=== PATIENT | female | born 1945 | race Caucasian/White ===

== ENCOUNTER → 2018-12-15 | Outpatient (CLI) | payer OTHER ==
--- NOTE | 2018-12-15 16:59 | PCVCIMAG ---
APPROVED REPORT Study performed: 12/15/2018 15:47:18 EXAM: Comprehensive 2D, Doppler, and color-flow Echocardiogram Patient Location: Echo lab Status: routine BSA: 1.67 HR: 72 bpmBP: 130/78 mmHg Rhythm: NSR Other Information Study Quality: Adequate Risk Factors: Cardiac Risk Factors: HTN Indications Abnormal ECG Dyspnea edema 2D Dimensions IVSd: 9.24 (7-11mm)LVOT Diam: 19.65 (18-24mm) LVDd: 41.97 mm PWd: 9.13 (7-11mm)Ascending Ao: 32.17 (22-36mm) LVDs: 31.04 (25-40mm) Left Atrium: 36.13 (27-40mm) Aortic Root: 29.83 mm LV Single Plane 4CH: 60.22 % LV Single Plane 2CH: 66.98 % Biplane EF: 64.0 % Volumes Left Atrial Volume (Systole) Single Plane 4CH: 50.17 mLSingle Plane 2CH: 49.83 mL LA ESV Index: 30.00 mL/m2 Aortic Valve AoV Peak Rashad.: 1.63 m/s AO Peak Gr.: 10.61 mmHgLVOT Max P.58 mmHg LVOT Max V: 0.80 m/s UCHE Vmax: 1.50 cm2 Mitral Valve E/A Ratio: 0.6 MV Decel. Time: 261.23 ms MV E Max Rashad.: 0.47 m/s MV A Rasahd.: 0.76 m/s IVRT: 131.49 ms Pulmonary Valve PV Peak Rashad.: 1.19 m/sPV Peak Gr.: 5.62 mmHg Pulmonary Vein P Vein S: 0.29 m/sP Vein A: 0.36 m/s P Vein D: 0.37 m/sP Vein A Dur.: 103.8 msec P Vein S/D Ratio: 0.78 Tricuspid Valve TR Peak Rashad.: 2.66 m/s TR Peak Gr.: 28.21 mmHg TV Vmax: 0.53 m/s Left Ventricle The left ventricle is normal size. There is normal LV segmental wall motion. There is normal left ventricular wall thickness. Left ventricular systolic function is normal. The left ventricular ejection fraction is within the normal range. LVEF is 60-65%. Grade I - abnormal relaxation pattern. Right Ventricle The right ventricle is normal size. The right ventricular systolic function is normal. Atria The left atrium size is normal. The right atrium size is normal. Aortic Valve Mild aortic valve sclerosis. Trace aortic regurgitation. There is no aortic valvular stenosis. Mitral Valve Mild mitral annular calcification. Mild mitral regurgitation. No evidence of mitral valve stenosis. Tricuspid Valve The tricuspid valve is normal in structure. Mild tricuspid regurgitation with PAP of 35 mmHg. Pulmonic Valve The pulmonary valve is normal in structure. Trace pulmonic regurgitation. Great Vessels The aortic root is normal in size. IVC is normal in size and collapses >50% with inspiration. Pericardium There is no pericardial effusion. There is no pleural effusion. <Conclusion> The left ventricle is normal size. LVEF is 60-65%. Grade I - abnormal relaxation pattern. The right ventricle is normal size. The left atrium size is normal. Mild aortic valve sclerosis. Trace aortic regurgitation. Mild mitral regurgitation. Mild tricuspid regurgitation with PAP of 35 mmHg. The aortic root is normal in size. There is no pericardial effusion.
--- NOTE | 2018-12-15 18:16 | PCVCIMAG ---
EXAM: BILATERAL RENAL ULTRASOUND AND BILATERAL RENAL DUPLEX INDICATION: Hypertension FINDINGS: Right kidney: Length measures 9.6 cm. No hydronephrosis or extensive renal scarring. Right renal duplex: Adequate technical quality. No sonographic evidence of renal artery stenosis. The aortic to renal artery ratio is 1.7. The renal vein is patent. Left kidney: Length measures 10.0 cm. No hydronephrosis or extensive renal scarring. Left renal duplex: Adequate technical quality. No sonographic evidence of renal artery stenosis. The aortic to renal artery ratio is 1.6. The renal vein is patent. Bladder: No obvious abnormalities. IMPRESSION: No significant renal artery stenosis. No hydronephrosis bilaterally. LOC:[id number]
== END | disposition home or self-care (01) ==
LOC: PCVCIMAG 14:32
PROVIDERS: ATTEND Internal Medicine Cardiovascular Disease
DX: I08.3 Combined rheumatic disorders of mitral, aortic and tricuspid valves (principal); R94.31 Abnormal electrocardiogram [ECG] [EKG]; R06.00 Dyspnea, unspecified; I10 Essential (primary) hypertension
CPT/HCPCS: 76770; 93306; 93975